=== PATIENT | male | born 1960 | race African-American/Black ===

== ENCOUNTER 2019-02-26 01:30 | Emergency (ER) | payer OTHER ==
[~2019-02-26] VITALS: Ht 170.2 cm; Wt 77.1 kg
--- NOTE | 2019-02-26 01:30 | NUR ---
ED Nurse Note: pt walked in c/o dizziness, abd pain and nausea x 3 hrs ago. AO4. NAD.
--- NOTE | 2019-02-26 01:45 | NUR ---
ED Nurse Note: IV ACCESS ESTABLISHED. BLOOD AND URINE COLLECTED; SENT DOWN TO LAB.
[2019-02-26 01:53] VITALS: BP 143/85
--- NOTE | 2019-02-26 01:54 | Emergency Room Report ---
History of Present Illness General Chief Complaint: Dizziness Source: Patient Present Illness [facility] This is a 58-year-old male with no past medical history. He presents with chief complaint of dizziness. It occurred 2 hours ago. He said he felt nauseous and feel like he is drunk even though he has not been drinking. Also been complaining of headache for the last few few days. No vomiting but no diarrhea. Limit better now. No chest pain. No nausea no vomiting. Never had this problem before. Allergies: Coded Allergies: No Known Allergies (Unverified , 02/26/19) Patient History Past Medical History: see triage record, old chart reviewed Past Surgical History: none Pertinent Family History: none Social History: Denies: smoking Immunizations: other Reviewed Nursing Documentation: PMH: Agreed; PSxH: Agreed Nursing Documentation-PMH Past Medical History: No History, Except For Hx Cardiac Problems: No - DVT Review of Systems Eye: Denies: eye pain, blurred vision ENT: Denies: ear pain, nose congestion, throat swelling Respiratory: Denies: cough, shortness of breath Cardiovascular: Denies: chest pain, palpitations Gastrointestinal: Denies: abdominal pain, diarrhea, nausea, vomiting Musculoskeletal: Denies: back pain, joint pain Skin: Denies: rash Neurological: Reports: dizziness; Denies: headache, numbness Endocrine: Denies: increased thirst, increased urine Hematologic/Lymphatic: Denies: easy bruising All Other Systems: negative except mentioned in HPI Physical Exam Vital Signs Date Time Temp Pulse Resp B/P (MAP) Pulse Ox O2 Delivery O2 Flow Rate FiO2 02/26/19 01:34 98.6 105 18 163/106 (125) 96 Room Air High blood pressure Sp02 EP Interpretation: reviewed, normal General Appearance: well appearing, no apparent distress, alert Head: normocephalic, atraumatic Eyes: bilateral eye PERRL, bilateral eye EOMI ENT: hearing grossly normal, normal pharynx Neck: full range of motion, supple, no meningismus Respiratory: chest non-tender, lungs clear, normal breath sounds Cardiovascular #1: regular rate, rhythm, no murmur Gastrointestinal: normal bowel sounds, non tender, no mass, no organomegaly, no bruit, non-distended Musculoskeletal: back normal, gait/station normal, normal range of motion Psychiatric: mood/affect normal Medical Decision Making Diagnostic Impression: Primary Impression: Dizziness of unknown cause Additional Impression: Hypertension Qualified Codes: I10 - Essential (primary) hypertension ER Course Patient presents with dizziness. Most likely secondary to hypertension. No evidence of endorgan damage. Patient felt better now. Will discharge home. Rhythm Strip Diag. Results EP Interpretation: yes Rate: 94 Rhythm: NSR, no PVC's, no ectopy CT/MRI/US Diagnostic Results CT/MRI/US Diagnostic Results : Imaging Test Ordered: CT head Impression Read by radiologist. Negative. Last Vital Signs Date Time Temp Pulse Resp B/P (MAP) Pulse Ox O2 Delivery O2 Flow Rate FiO2 02/26/19 01:34 98.6 105 18 163/106 (125) 96 Room Air Status: improved Disposition: HOME, SELF-CARE Condition: Stable Scripts Amlodipine Besylate (Norvasc) 10 Mg Tablet 5 MG ORAL DAILY, #30 TAB Prov: Jerry Broderick MD 02/26/19 Patient Instructions: Dizziness Additional Instructions: Follow-up with your doctor in 7-14 days for recheck on your blood pressure. Return if worse. Jerry Broderick MD Feb 26, 2019 01:54
--- NOTE | 2019-02-26 02:06 | NUR ---
ED Nurse Note: PT DOWN TO CT
[2019-02-26 02:07] LABS: APPEARANCE,URINE CLEAR; BILIRUBIN, URINE NEGATIVE (NEGATIVE); COLOR,URINE PALE YELLOW; GLUCOSE, URINE (UA) NEGATIVE (NEGATIVE); KETONES,URINE NEGATIVE (NEGATIVE); LEUKOCYTE ESTERASE ,URINE NEGATIVE (NEGATIVE); NITRITE,URINE NEGATIVE (NEGATIVE); PH,URINE 5 (4.5-8.0); PROTEIN,URINE NEGATIVE (NEGATIVE); UROBILINOGEN,URINE NORMAL MG/DL (0.0-1.0)
[2019-02-26 02:10] LABS: BASOPHILS % (AUTO) 2.1 % (0.0-2.0); EOSINOPHILS % (AUTO) 1.7 % (0.0-3.0); HEMATOCRIT 47.7 % (42.0-52.0); LYMPHOCYTES % (AUTO) 20.9 % (20.0-45.0); MEAN CORPUSCULAR VOLUME 94 FL (80-99); MONOCYTES % (AUTO) 8.7 % (1.0-10.0); NEUTROPHILS % (AUTO) 66.7 % (45.0-75.0); PLATELET COUNT 216 K/UL (150-450); RED BLOOD COUNT 5.08 M/UL (4.70-6.10); RED CELL DISTRIBUTION WIDTH 12.3 % (11.6-14.8); WHITE BLOOD COUNT 7.3 K/UL (4.8-10.8)
[2019-02-26 02:23] LABS: ANION GAP 13 mmol/L (5-15); BLOOD UREA NITROGEN 13 mg/dL (7-18); CALCIUM 9.6 MG/DL (8.5-10.1); CARBON DIOXIDE 20 MMOL/L (21-32); CHLORIDE 109 MMOL/L (98-107); CREATININE 1.1 MG/DL (0.55-1.30); SODIUM 142 MMOL/L (136-145)
--- NOTE | 2019-02-26 02:23 | NUR ---
ED Nurse Note: PT BACK FROM CT.
[2019-02-26 02:24] LABS: POTASSIUM 5.7 MMOL/L (3.5-5.1)
[2019-02-26] MEDS ORDERED: NORVASC10 MG ORAL (02:44)
--- NOTE | 2019-02-26 02:54 | Diagnostic Imaging Report ---
Indications: Headache Technique: Spiral acquisitions obtained through the brain. Angled axial and coronal 5 x 5 mm slices were reconstructed. Total dose length product 1400.72 mGycm. CTDI vol(s) 70.38 mGy. Dose reduction achieved using automated exposure control Comparison: None. Findings: No acute intracranial hemorrhage or edema. No mass effect nor midline shift. Normal size ventricles and extra axial CSF spaces. Normal pryor-white differentiation. Intact calvarium. Visualized orbits and sinuses are unremarkable. Impression: Negative This agrees with the preliminary interpretation provided overnight by [facility] teleradiology service. The CT scanner at [facility] is accredited by the [employer] and the scans are performed using protocols designed to limit radiation exposure to as low as reasonably achievable to attain images of sufficient resolution adequate for diagnostic evaluation.
--- NOTE | 2019-02-26 03:03 | NUR ---
ED Nurse Note: report received from Aleks Elena RN. Pt in bed, no acute distress is noted.
--- NOTE | 2019-02-26 03:08 | NUR ---
HAND-OFF: Report given to AKIRA CARRERA. PATIENT RESTING IN BED WITH NAD. AO4. VSS.
[2019-02-26 03:14] VITALS: BP 132/84
--- NOTE | 2019-02-26 03:14 | NUR ---
ER DISCHARGE NOTE: Patient is cleared to be discharged per ERMD, pt is aox4, on room air, with stable vital signs. pt was given dc and prescription instructions, pt was able to verbalize understanding, pt id band and iv site removed without complications. pt is able to ambulate with steady gait. pt took all belongings.
== END 2019-02-26 03:14 | disposition home or self-care (01) ==
LOC: EMR 01:46
DX: R42 Dizziness and giddiness (principal); I10 Essential (primary) hypertension; Z86.718 Personal history of other venous thrombosis and embolism; R51 Headache
CPT/HCPCS: 36415; 70450; 80048; 81001; 85025; 96361; 96374; 99284; J2405

== ENCOUNTER 2019-03-02 19:11 | Emergency (ER) | payer OTHER ==
[~2019-03-02] VITALS: Ht 172.7 cm; Wt 86.2 kg
[~2019-03-02 19:11] MED LIST: NORVASC10 MG ORAL
--- NOTE | 2019-03-02 19:20 | NUR ---
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
[2019-03-02] MEDS ORDERED: LORazepam Inj 2mg/ml 1ml IV ONE (19:30)
[2019-03-02 19:45] LABS: BASOPHILS % (AUTO) 1.9 % (0.0-2.0); EOSINOPHILS % (AUTO) 2.9 % (0.0-3.0); HEMATOCRIT 37.6 % (42.0-52.0); HEMOGLOBIN 13.8 G/DL (14.2-18.0); LYMPHOCYTES % (AUTO) 23.4 % (20.0-45.0); MEAN CORPUSCULAR VOLUME 88 FL (80-99); MONOCYTES % (AUTO) 10.6 % (1.0-10.0); NEUTROPHILS % (AUTO) 61.2 % (45.0-75.0); PLATELET COUNT 197 K/UL (150-450); RED BLOOD COUNT 4.28 M/UL (4.70-6.10); RED CELL DISTRIBUTION WIDTH 10.7 % (11.6-14.8); WHITE BLOOD COUNT 6.1 K/UL (4.8-10.8)
[2019-03-02 19:53] LABS: ANION GAP 8 mmol/L (5-15); BLOOD UREA NITROGEN 13 mg/dL (7-18); CALCIUM 8.9 MG/DL (8.5-10.1); CARBON DIOXIDE 24 MMOL/L (21-32); CHLORIDE 108 MMOL/L (98-107); CREATININE 1.1 MG/DL (0.55-1.30); POTASSIUM 3.4 MMOL/L (3.5-5.1); SODIUM 139 MMOL/L (136-145)
[2019-03-02] MEDS ORDERED: Morphine Sulfate 4mg/ml Inj (IV USE ONLY) IVP ONE (20:00)
[2019-03-02 20:22] LABS: ALANINE AMINOTRANSFERASE 29 U/L (12-78); ALBUMIN 3.5 G/DL (3.4-5.0); ALBUMIN/GLOBULIN RATIO 0.9 (1.0-2.7); ALKALINE PHOSPHATASE 99 U/L (46-116); ASPARTATE AMINO TRANSFERASE 19 U/L (15-37); BILIRUBIN,TOTAL 0.6 MG/DL (0.2-1.0); CKMB 3.8 NG/ML (0.0-3.6); CREATINE KINASE 282 U/L (26-308)
[2019-03-02 20:30] VITALS: BP 127/79
--- NOTE | 2019-03-02 21:00 | NUR ---
ED Nurse Note: Meds given effective, pt sleeping, awakened for urine sample, sent to lab, pt resting quietly but when asked staters severe chest pain at 8/10 and no relief from meds, iv site patent, NSR on cardiac monitoring, no sob or labored breathing, pt sleeping, will continue to closely monitor for any changes or distress.
[2019-03-02 21:35] VITALS: BP 135/91
--- NOTE | 2019-03-02 22:20 | NUR ---
ED Nurse Note: Pt being d/c to home, awake, alert and oriented x 4, denies cp or any pain, no sob or labored breathing, pt is ambulatory and more calm and not restless, MD at bedside and discussing pt toxicology results and dispo information, v/s stable, nad noted as pt is being d/c to home.
[2019-03-02 22:45] VITALS: BP 128/81
[2019-03-02 23:00] VITALS: BP 128/81
--- NOTE | 2019-03-03 11:44 | Cardiology Report ---
APPROVED REPORT EKG Measurement Heart [id number] Sinus tachycardia Rightward axis Borderline ECG
== END 2019-03-02 23:00 | disposition home or self-care (01) ==
LOC: EDBD 19:11 → EMR 22:34
DX: R07.9 Chest pain, unspecified (principal); F15.10 Other stimulant abuse, uncomplicated; F14.10 Cocaine abuse, uncomplicated; I10 Essential (primary) hypertension; Z86.718 Personal history of other venous thrombosis and embolism; F17.200 Nicotine dependence, unspecified, uncomplicated; F12.10 Cannabis abuse, uncomplicated
CPT/HCPCS: 36415; 71045; 80053; 80307; 82550; 82553; 83880; 84484; 85025; 85379; 93005; 96374; 96375; 99284; J2270

== ENCOUNTER 2019-04-24 05:49 | Emergency (ER) | payer MEDICAID, OTHER ==
[~2019-04-24] VITALS: Ht 170.2 cm; Wt 77.1 kg
[2019-04-24 06:00] VITALS: BP 134/78
[2019-04-24] MEDS ORDERED: Methocarbamol 500mg tab ORAL ONE (06:00)
[2019-04-24] MEDS ORDERED: Acetaminophen 500mg (ES) tab ORAL ONE (06:00)
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
[2019-04-24] MEDS ORDERED: NAPROXEN250 MG ORAL (06:09)
--- NOTE | 2019-04-24 06:09 | Emergency Room Report ---
History of Present Illness General Chief Complaint: Lower Back Pain or Injury Source: Patient Present Illness HPI 58-year-old male presents with left lower back pain, started today after horse playing with his friend, he states that he was pushing excellently fell down, he states his left lower back hurts, laterally, aggravated with movement alleviated with rest severity is mild, no bowel bladder retention/incontinence, no issues urinating, no fevers no chills no history of IV drug use. Patient presents for evaluation requesting a note for work. Allergies: Coded Allergies: No Known Allergies (Unverified , 02/26/19) Patient History Past Medical History: see triage record Social History: Reports: smoking Reviewed Nursing Documentation: PMH: Agreed; PSxH: Agreed Nursing Documentation-PMH Hx Cardiac Problems: No - DVT Hx Hypertension: Yes Review of Systems All Other Systems: negative except mentioned in HPI Physical Exam Vital Signs Date Time Temp Pulse Resp B/P (MAP) Pulse Ox O2 Delivery O2 Flow Rate FiO2 04/24/19 05:51 98.1 99 22 134/78 (96) 99 Room Air General Appearance: well appearing, no apparent distress Head: normocephalic, atraumatic ENT: hearing grossly normal, normal voice Neck: full range of motion, supple Respiratory: no respiratory distress, speaking full sentences Musculoskeletal: other - No midline tenderness, left lower backup administrator to palpation along the muscle Neurologic: alert, normal gait Psychiatric: mood/affect normal Skin: no rash Medical Decision Making Diagnostic Impression: Primary Impression: Low back pain Qualified Codes: M54.5 - Low back pain ER Course The patient presents with acute onset of back pain after horse play with friends. Clinically this patient can be ruled out for serious pathology given there is a completely normal neurological exam, no history of IV drug use, and no history of bowel or bladder incontinence, no perianal numbness/tingling, no constipation or urinary retention. Once the patient's pain was adequately controlled, the patient was able to ambulate and be discharged in stable condition with anticipatory guidance provided. Last Vital Signs Date Time Temp Pulse Resp B/P (MAP) Pulse Ox O2 Delivery O2 Flow Rate FiO2 04/24/19 05:51 98.1 99 22 134/78 (96) 99 Room Air Disposition: HOME, SELF-CARE Condition: Stable Scripts Naproxen* (NAPROSYN*) 250 Mg Tablet 250 MG ORAL BID PRN for For Pain, #20 TAB 0 Refills Prov: Robbie Ocampo MD 04/24/19 [address]errals: [facility] Moy Moore. [facility] Departure Forms: Return to Work Return to Work Date: Apr 28, 2019 Patient Instructions: Low Back Sprain With Rehab-Sports[facility], Lumbosacral Strain , Back Pain, Adult Additional Instructions: The patient was provided with discharge instructions, notified to follow-up with a primary care doctor and or specialist in the next 24-48 hours, and to return to the ED if they have worsening of their symptoms. Please note that this report is being documented using [email or web address] technology. This can lead to erroneous entry secondary to incorrect interpretation by the dictating instrument. Robbie Ocampo MD Apr 24, 2019 06:09
[2019-04-24 06:16] VITALS: BP 130/80
--- NOTE | 2019-04-24 06:16 | NUR ---
ER DISCHARGE NOTE: Patient is cleared to be discharged per ERMD, pt is aox4, on room air, with stable vital signs. pt was given dc and prescription instructions, pt was able to verbalize understanding, pt id band removed without complications. pt is able to ambulate with steady gait. pt took all belongings.
== END 2019-04-24 06:16 | disposition home or self-care (01) ==
LOC: EMR 06:08
DX: M54.5 Low back pain (principal); I10 Essential (primary) hypertension; Z86.718 Personal history of other venous thrombosis and embolism; F17.200 Nicotine dependence, unspecified, uncomplicated
CPT/HCPCS: 99282